=== PATIENT | male | born 1950 | race Caucasian/White ===

== ENCOUNTER 2016-10-13 09:49 | Outpatient (CLI) | payer MEDICARE, OTHER ==
--- NOTE | 2016-10-13 13:47 | Diagnostic Imaging Report ---
[facility] [address] [facility].[address] 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 These findings are stable since 07/21/2016. There is no confluent airspace infiltrate or pleural effusion. Heart size is upper normal. IMPRESSION: Emphysema with bullous disease in the right lung base. Hiatal hernia. No acute abnormalities observed. No change since the prior exam. Electronically signed on Oct 13, 2016 10:40:15 AM ROLLED GLASS CROSSCUTTER by: Sam JACKSON
== END 2016-10-13 09:50 ==
LOC: RAD 09:49
PROVIDERS: ATTEND Family Medicine
DX: R91.8 Other nonspecific abnormal finding of lung field (principal)
CPT/HCPCS: 71020

== ENCOUNTER 2017-03-21 14:29 | Outpatient (CLI) | payer MEDICARE, OTHER ==
[2017-03-21 14:52] LABS: BASOPHILS % 0.8 (0.0-1.5); EOSINOPHILS % 1.5 % (0.0-6.8); MEAN CORPUSCULAR VOLUME 81.9 fl (80.0-100.0); MONOCYTES % 5.4 % (0.0-11.0); NEUTROPHILS # 7.3 # k/uL (1.4-7.7)
[2017-03-21 15:11] LABS: eGFR (African) > 60; eGFR (Non-African) > 60
--- NOTE | 2017-03-21 16:03 | Diagnostic Imaging Report ---
ELLIOTT LINK [facility] [address] [facility].[address] [address] Report Submission Date: Mar 21, 2017 3:38:07 PM CDT Patient Study Name: AAMIR ABARCA Date: Mar 21, 2017 2:38:00 PM CDT Modality Type: CR Gender: M Description: CHEST : 48 Institution: [facility] Physician: ELLIOTT LINK Examination: PA and lateral chest. History: Evaluate lung tate. Comparison exam: 13 October 2016 Findings: PA lateral chest demonstrates stable chronic changes at the lung bases - right greater than left. No new blunting of the costophrenic margins or apical infiltrative process. Stable cardiac silhouette. Hiatal hernia. Osseous structures are appropriate for age. Impression: Stable chronic changes. No new or acute appearing process. Electronically signed on Mar 21, 2017 3:38:07 PM CDT by: Berny JACKSON
== END 2017-03-21 14:35 ==
LOC: LAB 14:29
PROVIDERS: ATTEND Family Medicine
DX: R06.02 Shortness of breath (principal)
CPT/HCPCS: 36415; 71020; 80053; 85025

== ENCOUNTER 2017-04-19 15:04 | Outpatient (CLI) | payer MEDICARE, OTHER ==
[2017-04-19 15:24] LABS: EOSINOPHILS % 2.3 % (0.0-6.8); MEAN CORPUSCULAR HEMOGLOBIN 25.2 pg (28.0-34.0); MEAN CORPUSCULAR VOLUME 89.4 fl (80.0-100.0); MONOCYTES % 6.6 % (0.0-11.0); NEUTROPHILS # 5.5 # k/uL (1.4-7.7)
== END 2017-04-19 15:05 ==
LOC: LAB 15:04
PROVIDERS: ATTEND Family Medicine
DX: D64.9 Anemia, unspecified (principal)
CPT/HCPCS: 36415; 85025; 86885; 86900; 86901; 86920

== ENCOUNTER 2017-06-03 00:27 | Inpatient (IN) | payer MEDICARE, OTHER ==
--- NOTE | 2017-06-03 00:46 | ED Physician Documentation ---
Dyspnea - HISTORIAN Historian: paramedics, other ([place] staff) - HPI Chief Complaint: Dyspnea Further Comments: yes (67 year old male patient sent to Er for evaluation of dyspnea and altered mental status. Staff reports symptoms started tonight. Patient unable to contribute to ROS due to altered mental status. Moans, no clear speech at this time, will not answer questions.) - ROS CONST: weakness EYES/ENT: none GI/: none NEURO/PSYCH: denies: headache MS/SKIN/LYMPH: none Comment: Patient unable to contribute to ROS due to AMS - PAST HX Lung Disease: COPD Cardiac Disease: CHF, other (HLD) PE Risk Factors: hypertension Other History: diabetes Type 2, other (dysphagia, osteoarthritis, Schizophrenia , ) Allergies/Adverse Reactions: Allergies Allergy/AdvReac Type Severity Reaction Status Date / Time NSAIDS (Non-Steroidal Allergy Verified 06/03/17 01:01 Anti-Inflamma salicylates Allergy Verified 06/03/17 01:01 Home Medications: Ambulatory Orders Medication Instructions Recorded Acetaminophen [Tylenol Extra 500 mg PO Q6 PRN 06/03/17 Strength] Bisacodyl [Dulcolax] 10 mg RC QD PRN 06/03/17 Budesonide/Formoterol Fumarate 2 puff IH Q12H 06/03/17 [Symbicort 160-4.5 Mcg Inhaler] Docusate Sodium [Colace] 100 mg PO DAILY 06/03/17 Escitalopram Oxalate [Lexapro] 20 mg PO DAILY 06/03/17 Ferrous Sulfate [Feosol] 325 mg PO BID 06/03/17 Furosemide [Lasix] 20 mg PO 1400 06/03/17 Furosemide [Lasix] 40 mg PO DAILY 06/03/17 Glimepiride [Amaryl] 4 mg PO 0730 06/03/17 Guaifenesin [Mucinex] 600 mg PO BID PRN 06/03/17 HYDROcodone /APAP 5/325 [Pierson 1 each PO Q6 PRN 06/03/17 5/325] Hydrochlorothiazide [Hydrodiuril] 12.5 mg PO DAILY 06/03/17 Insulin Aspart [Novolog Flexpen] 15 unit SQ 1200 06/03/17 Insulin Aspart [Novolog Flexpen] 15 unit SQ 1700 06/03/17 Insulin Aspart [Novolog Flexpen] 15 unit SQ BRKFST 06/03/17 Insulin Aspart [Novolog Flexpen] See Protocol SQ CMEAL 06/03/17 Insulin Glargine,Hum.rec.anlog 40 unit SQ 0800 06/03/17 [Lantus Solostar] Ipratropium/Albuterol Sulfate 3 ml NEB QID 06/03/17 [Duoneb] Lisinopril [Prinivil] 20 mg PO QD 06/03/17 Mag Hydrox/Al Hydrox/Simeth 30 ml PO ACHS PRN 06/03/17 [Mylanta] Magnesium Hydroxide [Milk of 2,400 mg PO DAILY PRN 06/03/17 Magnesia] Melatonin [Melatin] 3 mg PO HS PRN 06/03/17 Multivitamin [Tab-A-Kay] 1 each PO DAILY 06/03/17 Polymyxin B Sulf/Trimethoprim 1 drop OP QID 06/03/17 [Polytrim] Pravastatin Sodium [Pravachol] 20 mg PO HS 06/03/17 Tamsulosin HCl [Flomax] 0.4 mg PO [id number] 06/03/17 guaiFENesin DM [Robitussin Dm] 10 ml PO Q6 PRN 06/03/17 predniSONE [Deltasone] 5 mg PO DAILY 06/03/17 traZODone HCL [Desyrel] 50 mg PO HS PRN 06/03/17 - SOCIAL HX Smoking History: non-smoker - FAMILY HX Family History: denies: none - REVIEWED ASSESSMENTS Nursing Assessment Reviewed: Yes Vitals Reviewed: Yes Progress - Progress Progress: Records from [place] reviewed. DNR noted. Old clinic records reviewed; no history of AFib noted in documentation, no old EKG in [facility]. Will admit inpatient for treatment of bilateral pneumonia; requiring O2 at 8L per simple mask, unable to wean to venti or NC. Continue nebs QID. Will hold SS insulin until mentation improves and patient is taking po's. Levaquin started in Er, blood cultures obtained. Will discuss Afib and anticoagulation with Dr Walker - defer treatment to him. Rate 100-105 in ER. - EKG/XRAY/CT EKG: rhythm (Afib, rate 103; no previous EKG) ED Results Lab/Radiology - Radiology Radiology Impressions: Chest - one-view Clinical history: Dyspnea. Findings: Examination of the chest in single portable AP view on 06/03/2017 0016 hours with comparison to examination of 03/21/2017 demonstrates new left lower lobe infiltrate. There is minimal infiltrate or atelectasis right base with right effusion blunting the costophrenic angle. Monitor leads superimpose the chest. The patient is rotated. There is a hazy density right midlung zone. Follow-up to clearing is recommended. Impression: 1. New bibasilar infiltrates worse on the left with small right effusion. 2. Rotated chest. Electronically signed on Jun 03, 2017 1:23:25 AM CDT by: Ibrahima Tolbert Head CT without contrast Clinical history: Dyspnea. Altered mental status. Technique: CT examination of the brain is performed in contiguous axial slices without the use of contrast. Findings: The fourth ventricle lies in a normal midline position. The ventricles and sulci are within normal limits. There is no hypodense or hyperdense mass or intracranial hemorrhage. Intracranial atherosclerosis is demonstrated. The visualized paranasal sinuses and the mastoid air cells are clear. Impression: 1. Atrophy. 2. Intracranial atherosclerosis. 3. No acute intracranial changes. Electronically signed on Jun 03, 2017 1:47:05 AM CDT by: Ibrahima Tolbert - Orders Orders: ED Orders Category Date Time Status Continuous EKG monitoring Q30M Care 06/03/17 00:38 Active Continuous Pulse Oximetry Q30M Care 06/03/17 00:[address] IV Lock 1T Care 06/03/17 00:38 Active CHEST 1 VIEW [RAD] Stat Exams 06/03/17 00:38 Ordered BNP [NT-proBNP] Stat Lab 06/03/17 Ordered CBC/PLATELET/DIFF Stat Lab 06/03/17 00:38 Ordered CMP Stat Lab 06/03/17 00:38 Ordered UA W/MICRO IF INDICATED Stat Lab 06/03/17 00:38 Ordered EKG WITH COMPARISON Stat Ther 06/03/17 00:38 Ordered Dyspnea Physical Exam - EXAM General Appearance: mild distress EENT: eye inspection normal, YUSEF Respiratory: no resp. distress, accessory muscle use, decreased air movement ( bases) CVS: no murmur, no gallop, no friction rub, pulses full, pulses equal, irregularly irreg. rhythm Abdomen: non-tender, no organomegaly, no distention, no ascites Skin: pallor, warm, dry Extremities: edema (2-3+ in ankles) Neuro/Psych: other (will not follow commands; sits up in bed, pupils sluggish; GCS 11: E 4, V 2, M 5) Discharge Clincal Impression: History of schizophrenia Altered mental status Qualifiers: Altered mental status type: disorientation Qualified Code(s): R41.0 - Disorientation, unspecified Pneumonia Qualifiers: Pneumonia type: due to unspecified organism Laterality: bilateral Lung location : lower lobe of lung Qualified Code(s): J18.9 - Pneumonia, unspecified organism Atrial fibrillation Qualifiers: Atrial fibrillation type: unspecified Qualified Code(s): I48.91 - Unspecified atrial fibrillation Anemia Qualifiers: Anemia type: unspecified type Qualified Code(s): D64.9 - Anemia, unspecified Condition: Fair Disposition: 09 ADMITTED INPATIENT Decision to Admit: [id number] Decision Time: 01:51
[2017-06-03 00:55] LABS: MEAN CORPUSCULAR HEMOGLOBIN 27.4 pg (28.0-34.0); MEAN CORPUSCULAR VOLUME 90.6 fl (80.0-100.0)
[2017-06-03 01:03] LABS: APPEARANCE,URINE Clear (CLEAR); COLOR,URINE Yellow (YELLOW); OCCULT BLOOD,URINE Negative (NEGATIVE); PH URINE 5.5 (5.0 - 8.0)
[2017-06-03 01:04] LABS: eGFR (African) > 60; eGFR (Non-African) > 60
[2017-06-03] MEDS ORDERED: IPRATROPIUM/ALBUTEROL SULFATE 3 ML AMPUL.NEB NEB ONE (01:12)
[2017-06-03] MEDS ORDERED: 0.9 % SODIUM CHLORIDE 1,000 ML IV ONE (01:12)
[2017-06-03] MEDS ORDERED: LEVOFLOXACIN 250MG/D5W 50ML 250 MG in PREMIX BAG 1 BAG IV ONE (01:29)
[2017-06-03] MEDS ORDERED: LEVOFLOXACIN 500MG/D5W 100ML 500 MG in PREMIX BAG 1 BAG IV ONE (01:29)
[2017-06-03] MEDS ORDERED: DOCUSATE SODIUM 100 MG CAPSULE PO ONE (01:31)
[2017-06-03] MEDS ORDERED: MAGNESIUM HYDROXIDE 400 MG/5 ML 30ML UDC PO PRN (01:31)
[2017-06-03] MEDS ORDERED: TAMSULOSIN HCL 0.4 MG CAP.ER.24H PO ONE (01:31)
[2017-06-03] MEDS ORDERED: LEVOFLOXACIN 500MG/D5W 100ML 100 ML IV ONE (01:34)
[2017-06-03] MEDS ORDERED: LEVOFLOXACIN 250MG/D5W 50ML 50 ML IV ONE (01:34)
[2017-06-03] MEDS ORDERED: Non-Formulary 1 EACH (Budesonide/Formoterol Fumarate [Symbicort 160-4.5 Mcg Inhaler] 2 PUF IH SCH (01:45)
[2017-06-03] MEDS ORDERED: GLIMEPIRIDE 2 MG TABLET PO SCH ×2 (01:45→07:30)
[2017-06-03] MEDS ORDERED: ESCITALOPRAM OXALATE 10 MG TABLET PO SCH ×2 (02:00→09:00)
[2017-06-03] MEDS ORDERED: LISINOPRIL 20 MG TABLET PO SCH ×2 (02:00→09:00)
[2017-06-03] MEDS ORDERED: IPRATROPIUM/ALBUTEROL SULFATE 3 ML AMPUL.NEB NEB SCH (02:00)
[2017-06-03 03:32] VITALS: BP 110/38; BMI 37.6
--- NOTE | 2017-06-03 05:33 | Discharge Summary ---
Discharge Summary - Discharge Sumary History of Present Illness: Patient admitted from [facility] with Bilateral lower lobe pneumonia and AMS. Staff reported patient with dyspnea and cough tonight. Requiring 8L simple mask to keep O2 sat 94% on admission, duonebs continued. Out of hospital DNR. Started on levaquin IV, IV fluids at 250cc/hr. Patient would reposition self, would not follow simple commands. PERRL, BBS deminished in bases, ineffective productive cough. Afib 90-100 on monitor. Condition at Discharge: Home Medications: Ambulatory Orders Medication Instructions Recorded Acetaminophen [Tylenol Extra 500 mg PO Q6 PRN 06/03/17 Strength] Bisacodyl [Dulcolax] 10 mg RC QD PRN 06/03/17 Budesonide/Formoterol Fumarate 2 puff IH Q12H 06/03/17 [Symbicort 160-4.5 Mcg Inhaler] Docusate Sodium [Colace] 100 mg PO DAILY 06/03/17 Escitalopram Oxalate [Lexapro] 20 mg PO DAILY 06/03/17 Ferrous Sulfate [Feosol] 325 mg PO BID 06/03/17 Furosemide [Lasix] 20 mg PO 1400 06/03/17 Furosemide [Lasix] 40 mg PO DAILY 06/03/17 Glimepiride [Amaryl] 4 mg PO 0730 06/03/17 Guaifenesin [Mucinex] 600 mg PO BID PRN 06/03/17 HYDROcodone /APAP 5/325 [Jenks 1 each PO Q6 PRN 06/03/17 5/325] Hydrochlorothiazide [Hydrodiuril] 12.5 mg PO DAILY 06/03/17 Insulin Aspart [Novolog Flexpen] 15 unit SQ 1200 06/03/17 Insulin Aspart [Novolog Flexpen] 15 unit SQ 1700 06/03/17 Insulin Aspart [Novolog Flexpen] 15 unit SQ BRKFST 06/03/17 Insulin Aspart [Novolog Flexpen] See Protocol SQ CMEAL 06/03/17 Insulin Glargine,Hum.rec.anlog 40 unit SQ 0800 06/03/17 [Lantus Solostar] Ipratropium/Albuterol Sulfate 3 ml NEB QID 06/03/17 [Duoneb] Lisinopril [Prinivil] 20 mg PO QD 06/03/17 Mag Hydrox/Al Hydrox/Simeth 30 ml PO ACHS PRN 06/03/17 [Mylanta] Magnesium Hydroxide [Milk of 2,400 mg PO DAILY PRN 06/03/17 Magnesia] Melatonin [Melatin] 3 mg PO HS PRN 06/03/17 Multivitamin [Tab-A-Kay] 1 each PO DAILY 06/03/17 Polymyxin B Sulf/Trimethoprim 1 drop OP QID 06/03/17 [Polytrim] Pravastatin Sodium [Pravachol] 20 mg PO HS 06/03/17 Tamsulosin HCl [Flomax] 0.4 mg PO [id number] 06/03/17 guaiFENesin DM [Robitussin Dm] 10 ml PO Q6 PRN 06/03/17 predniSONE [Deltasone] 5 mg PO DAILY 06/03/17 traZODone HCL [Desyrel] 50 mg PO HS PRN 06/03/17 Consultations this Visit: None Procedures this Visit: None Allergies/Adverse Reactions: Allergies Allergy/AdvReac Type Severity Reaction Status Date / Time NSAIDS (Non-Steroidal Allergy Verified 06/03/17 01:01 Anti-Inflamma salicylates Allergy Verified 06/03/17 01:01 Patient Problems: Current Active Problems Problem Status Onset Altered mental status Acute Anemia Acute Atrial fibrillation Acute History of schizophrenia Acute Pneumonia Acute Discharge Summary: 0510 Called to room by nursing, O2 saturation in 50s with NRBM, periods of apnea. 0515 Patient diaphoretic, pale, RR 16-20, unresponsive, SB on monitor. Will honor DNR, not signs of pain, resting quietly. Updated Dr Walker on patient's status. Unable to reach sister at this time. Will continue to attempt to call family. 0525 Time of - Final Diagnosis (1) Pneumonia Right or Left: Left, Right
--- NOTE | 2017-06-03 06:51 | Diagnostic Imaging Report ---
LAYTON KERN (ANGELICA) - ER [facility] [address] [facility].[address] [address] Report Submission Date: Jun 03, 2017 1:47:05 AM CDT Patient Study Name: AAMIR ABARCA Date: Jun 03, 2017 1:29:48 AM CDT Modality Type: CT\SR Gender: M Description: CT BRAIN W/O CONTRAST : 48 Institution: [facility] Physician: LAYTON KERN) - ER Head CT without contrast Clinical history: Dyspnea. Altered mental status. Technique: CT examination of the brain is performed in contiguous axial slices without the use of contrast. Findings: The fourth ventricle lies in a normal midline position. The ventricles and sulci are within normal limits. There is no hypodense or hyperdense mass or intracranial hemorrhage. Intracranial atherosclerosis is demonstrated. The visualized paranasal sinuses and the mastoid air cells are clear. Impression: 1. Atrophy. 2. Intracranial atherosclerosis. 3. No acute intracranial changes. Electronically signed on Jun 03, 2017 1:47:05 AM CDT by: Ibrahima JACKSON
--- NOTE | 2017-06-03 06:51 | Diagnostic Imaging Report ---
LAYTON KERN (ANGELICA) - ER [facility] [address] [address] Report Submission Date: Jun 03, 2017 1:23:25 AM CDT Patient Study Name: AAMIR ABARCA Date: Jun 03, 2017 1:02:18 AM CDT Modality Type: CR Gender: M Description: CHEST : 48 Institution: [facility] Physician: LAYTON KERN) - ER Chest - one-view Clinical history: Dyspnea. Findings: Examination of the chest in single portable AP view on 06/03/2017 0016 hours with comparison to examination of 03/21/2017 demonstrates new left lower lobe infiltrate. There is minimal infiltrate or atelectasis right base with right effusion blunting the costophrenic angle. Monitor leads superimpose the chest. The patient is rotated. There is a hazy density right midlung zone. Follow-up to clearing is recommended. Impression: 1. New bibasilar infiltrates worse on the left with small right effusion. 2. Rotated chest. Electronically signed on Jun 03, 2017 1:23:25 AM CDT by: Ibrahima JACKSON
[2017-06-03] MEDS ORDERED: HYDROCHLOROTHIAZIDE 25 MG TABLET PO SCH (07:00)
[2017-06-03] MEDS ORDERED: SALINE FLUSH 10 ML DISP.SYRIN IVF ONE (07:33)
[2017-06-03] MEDS ORDERED: INSULIN DETEMIR 100 UNIT/ML 3ML PEN.INJCTR SQ SCH (08:00)
[2017-06-03] MEDS ORDERED: INSULIN GLARGINE HUM REC ANLOG 40 UNIT SQ SCH (08:00)
[2017-06-03] MEDS ORDERED: FUROSEMIDE 40 MG TABLET PO SCH (09:00)
[2017-06-03] MEDS ORDERED: TRIMETHOPRIM OP SCH (09:00)
[2017-06-03] MEDS ORDERED: POLYMYXIN B SULF OP SCH (09:00)
[2017-06-03] MEDS ORDERED: predniSONE 10 MG TABLET PO SCH (09:00)
[2017-06-03] MEDS ORDERED: MULTIVITAMIN 1 EACH TABLET PO SCH (09:00)
[2017-06-03] MEDS ORDERED: DOCUSATE SODIUM 100 MG CAPSULE PO SCH (09:00)
[2017-06-03] MEDS ORDERED: FERROUS SULFATE 325 MG TABLET PO SCH (11:00)
[2017-06-03] MEDS ORDERED: TAMSULOSIN HCL 0.4 MG CAP.ER.24H PO SCH (18:00)
[2017-06-03] MEDS ORDERED: FUROSEMIDE 20 MG TABLET PO SCH (18:00)
[2017-06-04] MEDS ORDERED: LEVOFLOXACIN 250MG/D5W 50ML 250 MG in PREMIX BAG 1 BAG IV SCH (09:00)
[2017-06-04] MEDS ORDERED: LEVOFLOXACIN 500MG/D5W 100ML 500 MG in PREMIX BAG 1 BAG IV SCH (09:00)
== END 2017-06-03 05:25 | disposition expired | DRG 195 ==
LOC: ED 00:27 → SOUTH 01:34
PROVIDERS: ADMIT Family Medicine; ATTEND Family Medicine
DX: J18.9 Pneumonia, unspecified organism (principal); Z66 Do not resuscitate; R41.82 Altered mental status, unspecified
CPT/HCPCS: 51702; 70450; 71010; 80053; 81002; 83880; 85025; 87040; 87186; 93005; J1956; J7030; 99283; 99284; S1016